=== PATIENT | female | born 1925 | race Caucasian/White ===

== ENCOUNTER → 2016-08-30 | Outpatient (CLI) | payer MEDICARE, MEDICAID ==
[~2016-08-30] MED LIST: CENA K40 MEQ/15 PO; COLACE 100100 MG/CAP PO; DITROPAN XL10 MG PO; DRY EYES 15 ML15 ML OP; DULCOLAX5 MG PO; EXELON PAT4.6 MG/24 TD; GLUCOTROL XL2.5 MG PO; HALDOL 1MG T1 MG/TAB PO; HYTRIN 1MG C1 MG/CAP PO; INDERAL LA160 MG PO; INDERAL80 MG PO; LASIX 20MG TABL20 MG PO; LEVAQUIN 5500 MG/TA1 PO; LORTAB 5/500 501 TAB PO; MELATONIN1 MG PO; MICROZIDE12.5 MG PO; MILK OF MA400 MG/51 PO; MIRALAX PA17 GM/Dose PO; MYSOLINE 5050 MG/TAB PO; NORVASC 10MG10 MG PO; PLAVIX 75MG TAB75 MG PO; PRINIVIL20 MG PO; PROPRANOLOL ER PO; RISPERDAL 0.20.25 MG PO; SENOKOT8.6 MG; SENOKOT8.6 MG PO; TOPAMAX50 MG PO; TYLENOL 325MG325 MG PO; TYLENOL 500MG500 MG PO; TYLENOL 8 HR PO; ZESTRIL40 MG PO; ZOLOFT 100MG100 MG PO; ZOLOFT 50MG50 MG PO
[2016-08-30 15:58] LABS: CALCIUM 9.3 mg/dL (8.4-10.2); CREATININE, serum 2.2 mg/dL (0.52-1.25); POTASSIUM 5.3 mmol/L (3.4-5.0)
== END ==
LOC: ZLAB.STJ 15:35
PROVIDERS: Internal Medicine
DX: N17.8 Other acute kidney failure (principal)

== ENCOUNTER → 2016-09-05 | Outpatient (CLI) | payer MEDICARE, MEDICAID | LOC: ZLAB.STJ 11:23 | DX: I25.10 Atherosclerotic heart disease of native coronary artery without angina pectoris (principal) ==

== ENCOUNTER → 2016-09-24 | Outpatient (CLI) | payer MEDICARE, MEDICAID ==
[2016-09-24 18:10] LABS: HEMATOCRIT 38.1 % (37.0-47.0)
[2016-09-24 19:08] LABS: CALCIUM 9.7 mg/dL (8.4-10.2); CREATININE, serum 2.12 mg/dL (0.52-1.25); POTASSIUM 5.3 mmol/L (3.4-5.0)
== END ==
LOC: ZLAB.STJ 17:47
PROVIDERS: Internal Medicine Nephrology
DX: I10 Essential (primary) hypertension (principal); D64.89 Other specified anemias

== ENCOUNTER → 2016-09-24 | Outpatient (CLI) | payer MEDICARE, MEDICAID | LOC: ZLAB.STJ 15:01 | DX: Z53.9 Procedure and treatment not carried out, unspecified reason (principal) ==

== ENCOUNTER → 2016-10-15 | Outpatient (CLI) | payer MEDICARE, MEDICAID ==
[2016-10-15 14:57] LABS: CALCIUM 9.6 mg/dL (8.4-10.2); CREATININE, serum 2.18 mg/dL (0.52-1.25); POTASSIUM 4.9 mmol/L (3.4-5.0)
== END ==
LOC: COL.LAB 14:16 → ZLAB.STJ 14:16
PROVIDERS: Internal Medicine Nephrology
DX: N17.9 Acute kidney failure, unspecified (principal)

== ENCOUNTER → 2016-12-25 | Outpatient (CLI) | payer MEDICARE, MEDICAID | LOC: COL.LAB 13:14 | DX: E11.9 Type 2 diabetes mellitus without complications (principal) ==

== ENCOUNTER → 2017-02-05 | Outpatient (CLI) | payer MEDICARE, MEDICAID ==
[2017-02-05 19:29] LABS: HEMOGLOBIN 13.2 g/dl (12.5-16.0)
[2017-02-05 20:04] LABS: CALCIUM 9.4 mg/dL (8.4-10.2); CREATININE, serum 2.04 mg/dL (0.52-1.25); POTASSIUM 5.3 mmol/L (3.4-5.0)
== END ==
LOC: ZLAB.STJ 17:25
PROVIDERS: Internal Medicine
DX: A41.59 Other Gram-negative sepsis (principal)